=== PATIENT | female | born 1980 | race American Indian/Alaskan Native ===

== ENCOUNTER 2017-12-22 08:49 | Emergency (ER) | payer OTHER ==
[2017-12-22] MEDS ORDERED: MOTRIN PO ONE (13:57)
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
[2017-12-22 15:18] VITALS: BP 135/91
== END 2017-12-22 15:18 | disposition home or self-care (01) ==
LOC: ED 08:49
DX: S13.4XXA Sprain of ligaments of cervical spine, initial encounter (principal); V89.2XXA Person injured in unspecified motor-vehicle accident, traffic, initial encounter; Y93.89 Activity, other specified; Y92.89 Other specified places as the place of occurrence of the external cause; Y99.8 Other external cause status
CPT/HCPCS: 99282

== ENCOUNTER 2019-01-28 20:05 | Emergency (ER) | payer BC, OTHER ==
[2019-01-28 20:22] VITALS: BP 143/87
[2019-01-28 21:17] LABS: Basophils % (Auto) 0.7 % (0.0-1.8); Eosinophils # (Auto) 0.3 K/mm3 (0.0-0.4); Eosinophils % (Auto) 4.4 % (0.0-4.3); Hemoglobin 12.7 gm/dl (10.1-14.3); Lymphocytes # (Auto) 2.4 K/mm3 (1.2-5.4); Lymphocytes % (Auto) 32.5 % (13.4-35.0); Mean Corpuscular HGB Conc 33 % (30-34); Mean Corpuscular Volume 87 fl (79-97); Monocytes # (Auto) 0.4 K/mm3 (0.0-0.8); Monocytes % (Auto) 5.7 % (0.0-7.3); Platelet Count 234 K/mm3 (140-440); Red Blood Count 4.36 M/mm3 (3.65-5.03); Red Cell Distribution Width 15.2 % (13.2-15.2)
[2019-01-28 21:25] LABS: BUN/Creatinine Ratio 18; Blood Urea Nitrogen 11 mg/dL (7-17); Calcium 8.8 mg/dL (8.4-10.2); Hemolysis Index 34
--- NOTE | 2019-01-28 23:23 | Emergency Department Report ---
ED Chest Pain HPI - General Chief Complaint: Chest Pain Stated Complaint: CHEST & BACK PAIN Source: patient Mode of arrival: Ambulatory Limitations: No Limitations - History of Present Illness Initial Comments: Pt is a 38 yo female who presents to the ED with c/o right sided CP that began last night at 12 AM. She states it radiates to the right side of her back. The patient says its a sharp pain that is worse with movement. She has associated nausea and mild SOB. The patient denies any cough, emesis, pleuritic CP. The patient states she does lift heavy at work. She says that it feels like "indigestion or gas." The patient says she took jorge seltzer with no relief. She denies any recent long plane or car ride, immobilization, oral contraceptives, recent surgery, or unilateral LE edema. She denies any PMHx. She denies any personal or family hx of cardiac problems or DVT/PE. Severity scale (0 -10): 10 Aspirin use within the Past 7 Days: (0) No - Related Data On Oral Contraceptives: No Previous Rx's Medication Instructions Recorded Last Taken Type Cyclobenzaprine [Flexeril 10 MG 10 mg PO QHS PRN #7 tablet 01/29/19 Unknown Rx TAB] Ibuprofen [Motrin 600 MG tab] 600 mg PO Q8H PRN #30 tablet 01/29/19 Unknown Rx Omeprazole 20 mg PO DAILY #30 tablet. 01/29/19 Unknown Rx Allergies Allergy/AdvReac Type Severity Reaction Status Date / Time No Known Allergies Allergy Unverified 12/22/17 08:54 Heart Score - HEART Score History: Slightly suspicious EKG: Normal Age: < 45 Risk factors: No known risk factors Troponin: < normal limit HEART Score: 0 ED Review of Systems ROS: Stated complaint: CHEST & BACK PAIN Other details as noted in HPI Comment: All other systems reviewed and negative ED Past Medical Hx - Social History Smoking Status: Current Every Day Smoker Substance Use Type: Alcohol - Medications Home Medications: Home Medications Medication Instructions Recorded Confirmed Last Taken Type Cyclobenzaprine [Flexeril 10 MG 10 mg PO QHS PRN #7 tablet 01/29/19 Unknown Rx TAB] Ibuprofen [Motrin 600 MG tab] 600 mg PO Q8H PRN #30 tablet 01/29/19 Unknown Rx Omeprazole 20 mg PO DAILY #30 tablet. 01/29/19 Unknown Rx ED Physical Exam - General Limitations: No Limitations ED Course Vital Signs 01/28/19 01/29/19 20:20 01:56 Temperature 98.0 F 98.0 F Pulse Rate 90 90 Respiratory 18 18 Rate Blood Pressure 143/87 O2 Sat by Pulse 97 97 Oximetry DIONICIO score - Dionicio Score Age > 65: (0) No Aspirin use within the Past 7 Days: (0) No 3 or more CAD Risk Factors: (0) No 2 or more Angina events in past 24 hrs: (1) Yes Known CAD with more than 50% Stenosis: (0) No Elevated Cardiac Markers: (0) No ST Deviation Greater than 0.5mm: (0) No DIONICIO Score: 1 ED Medical Decision Making - Lab Data Result diagrams: 01/28/19 20:48 01/28/19 20:48 Laboratory Results - last 24 hr 01/28/19 01/28/19 01/28/19 20:48 20:48 20:48 WBC 7.3 RBC 4.36 Hgb 12.7 Hct 38.0 MCV 87 MCH 29 MCHC 33 RDW 15.2 Plt Count 234 Lymph % (Auto) 32.5 [place] % (Auto) 5.7 Eos % (Auto) 4.4 H Baso % (Auto) 0.7 Lymph # 2.4 [place] # 0.4 Eos # 0.3 Baso # 0.0 Seg Neutrophils % 56.7 Seg Neutrophils # 4.1 Sodium 142 Potassium 3.7 Chloride 102.6 Carbon Dioxide 28 Anion Gap 15 BUN 11 Creatinine 0.6 L Estimated GFR > 60 BUN/Creatinine Ratio 18 Glucose 137 H Calcium 8.8 Troponin T < 0.010 HCG, Qual Negative 01/28/19 23:37 WBC RBC Hgb Hct MCV MCH MCHC RDW Plt Count Lymph % (Auto) [place] % (Auto) Eos % (Auto) Baso % (Auto) Lymph # [place] # Eos # Baso # Seg Neutrophils % Seg Neutrophils # Sodium Potassium Chloride Carbon Dioxide Anion Gap BUN Creatinine Estimated GFR BUN/Creatinine Ratio Glucose Calcium Troponin T < 0.010 HCG, Qual - EKG Data -: EKG Interpreted by Me EKG shows normal: sinus rhythm, axis, intervals, QRS complexes, ST-T waves Rate: normal - Radiology Data Radiology results: report reviewed, image reviewed CXR: no acute process - Medical Decision Making Pt presents with right sided CP that began last night. Pt has associated nausea and mild SOB. CXR normal, EKG normal, Trop negative x2. Pt with right anterior chest wall pain. States she does lift heavy at work. No cardiac hx, no DVT/PE risk factors, no family hx of DVT/PE/cardiac hx. VSS. no hypoxia no tachycardia, no tachypnea. Also states acid reflux sx. Will treat with anti-inflammatory, muscle relaxer, and PPI. Advised pt not to drive while on muscle relaxer. Discussed with pt to follow up with primary care doctor in the next 2-3 days. Advised need to discuss elevated BP and elevated glucose. Discussed with pt return to ED if new or worsening symptoms. Critical care attestation.: If time is entered above; I have spent that time in minutes in the direct care of this critically ill patient, excluding procedure time. ED Disposition Clinical Impression: Chest wall pain GERD (gastroesophageal reflux disease) Qualifiers: Esophagitis presence: esophagitis presence not specified Qualified Code(s): K21.9 - Gastro-esophageal reflux disease without esophagitis Disposition: TO HOME OR SELFCARE Is pt being admited?: No Does the pt Need Aspirin: No Condition: Stable Instructions: Diet for Ulcers and Gastritis (ED), Costochondritis (ED), Gastroesophageal Reflux Disease (ED) Additional Instructions: Follow up with your primary care in the next 2-3 days. Need to discuss high blood pressure and high glucose. Return to the emergency room if any new or worsening symptoms. Prescriptions: Cyclobenzaprine [Flexeril 10 MG TAB] 10 mg PO QHS PRN #7 tablet PRN Reason: Muscle Spasm Ibuprofen [Motrin 600 MG tab] 600 mg PO Q8H PRN #30 tablet PRN Reason: Pain Omeprazole 20 mg PO DAILY #30 tablet. Referrals: PRIMARY CARE, [Primary Care Provider] - 3-5 Days Forms: Work/School Release Form(ED) Time of Disposition: 00:31 Print Language: SYRIAC
--- NOTE | 2019-01-28 23:24 | XRay Report ---
PROCEDURE: XR CHEST ROUTINE 2V TECHNIQUE: PA and lateral chest radiographs were obtained. HISTORY: Chest Pain COMPARISONS: None. FINDINGS: Heart: Normal. Mediastinum/Vessels: Normal. Lungs/Pleural space: Normal. Bony thorax: No acute osseous abnormality. IMPRESSION: Normal examination. This document is electronically signed by Tristin Arreaga MD., January 28 2019 11:22:08 PM ET
== END 2019-01-29 01:58 | disposition home or self-care (01) ==
LOC: ED 20:05
DX: R07.89 Other chest pain (principal); K21.9 Gastro-esophageal reflux disease without esophagitis; F17.200 Nicotine dependence, unspecified, uncomplicated
CPT/HCPCS: 36415; 71046; 80048; 84484; 84703; 85025; 93005; 93010; 99284